=== PATIENT | male | born 1940 ===

== ENCOUNTER 2024-12-09 10:08 | Outpatient (RCR) | payer MEDICARE, SELFPAY ==
[2024-12-09 10:18] VITALS: BP 161/100; PULSE 73; TEMP 36.8; O2SAT 93
[2024-12-09] MEDS: SODIUM CHLORIDE 0.9% IV (10:56)
[2024-12-09] MEDS: GOLIMUMAB IV (10:56)
== END 2024-12-10 07:45 | disposition home or self-care (01) ==
LOC: INF 10:08
PROVIDERS: PCP Family Medicine; Visit Provider Nurse Practitioner Family
DX: M05.79 Rheumatoid arthritis with rheumatoid factor of multiple sites without organ or systems involvement (principal)
CPT/HCPCS: 96365; J1602

== ENCOUNTER 2025-02-08 07:48 | Outpatient (RCR) | payer MEDICARE, SELFPAY ==
[2025-02-08 08:50] VITALS: BP 149/82; PULSE 67; TEMP 36.7; O2SAT 95
[2025-02-08] MEDS: SODIUM CHLORIDE 0.9% IV (09:30)
[2025-02-08] MEDS: GOLIMUMAB IV (09:30)
--- NOTE | 2025-02-08 09:32 | PC.NURSE ---
0930: IV infusion initiated at this time. Pt. cont. to deny needs or c/o.
--- NOTE | 2025-02-08 09:48 | PC.NURSE ---
Tolerating infusion without c/o. Denies needs
[2025-02-08 10:02] VITALS: BP 128/79; PULSE 65; TEMP 36.6; O2SAT 95
== END 2025-02-25 23:59 | disposition home or self-care (01) ==
LOC: INF 07:48
PROVIDERS: PCP Family Medicine
DX: M06.9 Rheumatoid arthritis, unspecified (principal)
CPT/HCPCS: 96365; J1602

== ENCOUNTER 2025-04-05 08:52 | Outpatient (RCR) | payer MEDICARE, SELFPAY ==
[2025-04-05 08:55] VITALS: BP 143/76; PULSE 80; TEMP 36.4; O2SAT 97
[2025-04-05] MEDS: GOLIMUMAB IV (09:16)
[2025-04-05] MEDS: SODIUM CHLORIDE 0.9% IV (09:16)
== END 2025-04-27 23:59 | disposition home or self-care (01) ==
LOC: INF 08:52
PROVIDERS: PCP Family Medicine
DX: M05.79 Rheumatoid arthritis with rheumatoid factor of multiple sites without organ or systems involvement (principal)
CPT/HCPCS: 96365; J1602

== ENCOUNTER 2025-05-31 07:27 | Outpatient (RCR) | payer MEDICARE, SELFPAY ==
[2025-05-31 08:55] VITALS: BP 138/83; PULSE 70; TEMP 35.8; O2SAT 95
[2025-05-31] MEDS: SODIUM CHLORIDE 0.9% IV (09:23)
[2025-05-31] MEDS: GOLIMUMAB IV (09:23)
[2025-05-31 09:48] VITALS: BP 127/74; O2SAT 95
== END 2025-06-27 23:59 | disposition home or self-care (01) ==
LOC: INF 07:27
PROVIDERS: PCP Family Medicine
DX: M05.79 Rheumatoid arthritis with rheumatoid factor of multiple sites without organ or systems involvement (principal)
CPT/HCPCS: 96365; J1602

== ENCOUNTER 2025-07-26 09:05 | Outpatient (RCR) | payer MEDICARE, SELFPAY ==
[2025-07-26 09:13] VITALS: BP 142/96; PULSE 82; TEMP 35.9; O2SAT 95
[2025-07-26] MEDS: SODIUM CHLORIDE 0.9% IV (09:28)
[2025-07-26] MEDS: GOLIMUMAB IV (09:28)
[2025-07-26] MEDS: 0.9 % SODIUM CHLORIDE 250 ML 10 ML IV (09:29)
--- NOTE | 2025-07-26 09:55 | PC.NURSE ---
Resting quietly with eyes closed. Tolerating infusion without s&s of adverse reaction
== END 2025-07-28 23:59 | disposition home or self-care (01) ==
LOC: INF 09:05
PROVIDERS: PCP Family Medicine
DX: M05.79 Rheumatoid arthritis with rheumatoid factor of multiple sites without organ or systems involvement (principal)
CPT/HCPCS: 96365; J1602